=== PATIENT | female | born 1960 | race Hispanic/Latino ===

== ENCOUNTER → 2022-02-23 | Day surgery (SDC) | payer OTHER ==
[2022-02-15 14:41] LABS: BASOPHILS % 0.5 % (0.0-1.0); EOSINOPHILS # (AUTO) 0.2 (0.0-0.4); EOSINOPHILS % 2.3 % (0.0-6.0); HEMATOCRIT 43.6 % (34.2-44.1); HEMOGLOBIN 14.3 g/dL (12.0-16.0); LYMPHOCYTES # (AUTO) 2.1 (1.0-3.2); LYMPHOCYTES % 31.3 % (18.0-39.1); MEAN CORPUSCULAR HEMOGLOBIN 30.4 pg (28-32); MEAN CORPUSCULAR HGB CONC 32.8 g/dL (31-35); MEAN CORPUSCULAR VOLUME 92.8 fL (81-99); MONOCYTES # (AUTO) 0.3 (0.2-0.8); NEUTROPHILS % 61.6 % (38.7-80.0); PLATELET COUNT 231 x10e3/uL (140-360); RED CELL DISTRIBUTION WIDTH 12.2 % (11.7-14.4)
[~2022-02-23] MED LIST: ATORVASTATIN CA20 MG PO; FENTANYL CITRATE/PF 100MCG/2 ML INJ ONE; LATANOPROST2.5 ML OP; LISINOPRIL2.5 MG PO; MIDAZOLAM HCL 2 MG/2 ML VIAL ONE; PROPOFOL IV EMULSION 10 MG/ML 20 ML VIAL ONE; VITAMIN D3250 MCG
[2022-02-23 14:40] VITALS: BP 107/74
== END | disposition home or self-care (01) ==
LOC: ENDO 12:04
PROVIDERS: ATTEND Internal Medicine Gastroenterology
DX: K29.50 Unspecified chronic gastritis without bleeding (principal); B96.81 Helicobacter pylori [H. pylori] as the cause of diseases classified elsewhere; K20.90 Esophagitis, unspecified without bleeding; Z86.010 Personal history of colon polyps; R19.5 Other fecal abnormalities; Z71.3 Dietary counseling and surveillance; I10 Essential (primary) hypertension; Z71.89 Other specified counseling; H40.9 Unspecified glaucoma; Z01.810 Encounter for preprocedural cardiovascular examination; Z01.812 Encounter for preprocedural laboratory examination; Z79.899 Other long term (current) drug therapy
CPT/HCPCS: 36415; 43239; 85025; 93005; C9113; J2250; J2704; J3010